=== PATIENT | female | born 1975 | race Hispanic/Latino ===

== ENCOUNTER 2018-01-16 14:31 | Emergency (ER) | payer OTHER ==
[2018-01-16 14:38] VITALS: TEMP 98.1
[2018-01-16 16:26] LABS: SQUAMOUS EPITHIAL 5 /hpf (0-5); URINE BILIRUBIN NEGATIVE (NEGATIVE); URINE BLOOD NEGATIVE (NEGATIVE); URINE CLARITY SLIGHTY-CLOUDY (Clear); URINE COLOR YELLOW (YELLOW); URINE GLUCOSE (UA) NEG (Normal); URINE LEUKOCYTE ESTERASE NEG Leu/uL (Negative); URINE PROTEIN NEGATIVE (NEGATIVE); URINE UROBILINOGEN 0.2-1.0 mg/dL (0.2-1.0)
--- NOTE | 2018-01-16 16:49 | ED PDOC ---
HPI: Psych/Substance Abuse Time Seen by Provider: 01/16/18 16:02 Chief Complaint (Nursing): Psychiatric Evaluation Chief Complaint (Provider): Psychiatric Evaluation History Per: Patient History/Exam Limitations: no limitations Onset/Duration Of Symptoms: Days (x1) Current Symptoms Are (Timing): Still Present Additional Complaint(s): 42 year old female with pmHx of chronic back pain, arrives to ED for a psychiatric evaluation after feeling overwhelmed and anxious for 1 day. Patient expresses severe stress and anxiety after her divorce attorney dropped her case yesterday regarding work and legal issues that has been ongoing for 1 year. She also states that she has had occasional nausea and vomiting induced with stressors. Otherwise, she reports right-sided lower back pain but notes that it feels similar to her chronic condition. 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 PMD: Dr. Masood Marie Past Medical History Reviewed: Historical Data, Nursing Documentation, Vital Signs Vital Signs: Last Vital Signs Temp 98.1 F 01/16/18 14:35 Pulse 122 H 01/16/18 14:35 Resp 16 01/16/18 14:35 BP 182/96 H 01/16/18 14:35 Pulse Ox 100 01/16/18 14:35 - Medical History PMH: Chronic Pain (back) - Surgical History Surgical History: No Surg Hx - Family History Family History: States: Unknown Family Hx - Immunization History Hx Tetanus Toxoid Vaccination: Yes Hx Influenza Vaccination: Yes Hx Pneumococcal Vaccination: Yes - Allergies Allergies/Adverse Reactions: Allergies Allergy/AdvReac Type Severity Reaction Status Date / Time Penicillins Allergy RASH Verified 01/16/18 14:34 shellfish derived Allergy RASH Verified 01/16/18 14:34 Review of Systems ROS Statement: Except As Marked, All Systems Reviewed And Found Negative Cardiovascular: Negative for: Chest Pain Respiratory: Negative for: Cough, Shortness of Breath Gastrointestinal: Positive for: Nausea, Vomiting. Negative for: Abdominal Pain Genitourinary Female: Negative for: Dysuria, Incontinence, Hematuria Musculoskeletal: Positive for: Back Pain (lower right-sided - chronic) Neurological: Negative for: Numbness (or saddle anesthesia/paraesthesia), Headache Psych: Positive for: Anxiety. Negative for: Suicidal ideation (or homicidal ideation, hallucinations, or delusion) Physical Exam - Reviewed Nursing Documentation Reviewed: Yes Vital Signs Reviewed: Yes - Physical Exam Appears: Positive for: No Acute Distress Head Exam: Positive for: ATRAUMATIC, NORMAL INSPECTION, NORMOCEPHALIC Skin: Positive for: Normal Color Eye Exam: Positive for: Normal appearance, EOMI, PERRL ENT: Positive for: Normal ENT Inspection (moist mucous membranes) Cardiovascular/Chest: Positive for: Regular Rate, Rhythm Respiratory: Positive for: Normal Breath Sounds. Negative for: Respiratory Distress Pulses-Radial (L): 2+ Pulses-Radial (R): 2+ Gastrointestinal/Abdominal: Positive for: Normal Exam, Soft. Negative for: Tenderness Back: Positive for: Vertebral Tenderness (right-sided lumbar and paraspinal mildly). Negative for: L CVA Tenderness, R CVA Tenderness, Decreased ROM Extremity: Positive for: Normal ROM (upper/lower) Neurologic/Psych: Positive for: Alert (x3), Oriented, Mood/Affect (tearful and crying), Gait (steady). Negative for: Motor/Sensory Deficits - Laboratory Results Urine POC: Negative - ECG O2 Sat by Pulse Oximetry: 100 (RA) Pulse Ox Interpretation: Normal Medical Decision Making Medical Decision Making: Time: 1505 Initial Plan: * Crisis evaluation * Toradol 60mg IM * UA * Urine C&S Time: 1700 --UA reviewed: no significant clinical abnormality. Negative for . Time: 1754 --Upon crisis evaluation, patient is medically stable and will be discharged home as per Dr. Mcgraw with diagnosis of anxiety. Counseling was provided and all questions were answered regarding diagnosis. There is agreement to discharge plan. Return if symptoms persist or worsen. On discharge, pt noted to have continued anxiety, tachycardia, and elevated pressure. Will give Xanax 0.25mg PO and reassess. On reassessment, pt calm and ready for discharge. BP <150/100. 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 Pt stable for discharge home. Clinical Impression: Anxiety Scribe Attestation: Documented by Ann Murray, acting as a scribe for Scarlett Rodarte PA-C. Provider Scribe Attestation: All medical record entries made by the Scribe were at my direction and personally dictated by me. I have reviewed the chart and agree that the record accurately reflects my personal performance of the history, physical exam, m edical decision making, and the department course for this patient. I have also personally directed, reviewed, and agree with the discharge instructions and disposition Disposition - Clinical Impression Clinical Impression: Anxiety - Disposition Referrals: [facility] [Outside] Disposition: Routine/Home Disposition Time: 18:00 Condition: IMPROVED Additional Instructions: Followup per crisis team Return to ER for new or worsening symptoms Instructions: Anxiety, Adult (DC) Forms: [employer] ([place]ian), [facility] ED School/Work Excuse
[2018-01-16 18:53] VITALS: BP 140/91; PULSE 79; RESP 18
[2018-01-18 22:23] VITALS: O2SAT 100
== END 2018-01-16 18:58 | disposition home or self-care (01) ==
LOC: H.ER 14:31
DX: F41.9 Anxiety disorder, unspecified (principal); G89.29 Other chronic pain; Z88.0 Allergy status to penicillin
CPT/HCPCS: 81003; 81025; 87086; 96372; 99283; J1885